=== PATIENT | female | born 1960 | race Caucasian/White ===

== ENCOUNTER → 2024-04-08 15:54 | Outpatient (REF) | payer BC, SELFPAY | LOC: WDC 15:54 | PROVIDERS: ATTENDING PHYSICIAN Advanced Practice Midwife; FAMILY PHYSICIAN Internal Medicine | DX: Z12.31 Encounter for screening mammogram for malignant neoplasm of breast (principal) | CPT/HCPCS: 77063; 77067 ==

== ENCOUNTER → 2024-05-18 16:09 | Outpatient (REF) | payer BC, SELFPAY | LOC: RAD 16:09 | PROVIDERS: FAMILY PHYSICIAN Internal Medicine | DX: Z01.818 Encounter for other preprocedural examination (principal) | CPT/HCPCS: 93005 ==

== ENCOUNTER 2025-01-21 06:19 | Day surgery (SDC) | payer BC, SELFPAY | END 2025-01-21 10:42 | disposition home or self-care (01) | LOC: GI 06:19 | PROVIDERS: ATTENDING PHYSICIAN Internal Medicine | DX: Z12.11 Encounter for screening for malignant neoplasm of colon (principal); K64.8 Other hemorrhoids; K57.30 Diverticulosis of large intestine without perforation or abscess without bleeding; D12.2 Benign neoplasm of ascending colon; K62.1 Rectal polyp; K63.5 Polyp of colon | CPT/HCPCS: 45385; 45380; 88305 ==

== ENCOUNTER → 2025-05-06 14:42 | Outpatient (REF) | payer OTHER, SELFPAY | LOC: WDC 14:42 | PROVIDERS: ATTENDING PHYSICIAN Internal Medicine | DX: Z12.31 Encounter for screening mammogram for malignant neoplasm of breast (principal) | CPT/HCPCS: 77063; 77067 ==

== ENCOUNTER → 2025-05-26 09:00 | Outpatient (REF) | payer OTHER, SELFPAY | LOC: RAD 09:00 | PROVIDERS: ATTENDING PHYSICIAN Internal Medicine | DX: M81.0 Age-related osteoporosis without current pathological fracture (principal) | CPT/HCPCS: 77080 ==